=== PATIENT | female | born 1980 | race Caucasian/White ===

== ENCOUNTER 2016-05-22 00:48 | Inpatient (IN) | payer MEDICARE ==
[~2016-05-22] VITALS: Ht 152.4 cm; Wt 52.4 kg
[2016-05-22] MEDS ORDERED: PROMETHAZINE 25 MG/ML VIAL ONE (01:59)
[2016-05-22] MEDS ORDERED: SODIUM CHLORIDE 0.9% 1,000 ML ONE (02:23)
[2016-05-22] MEDS ORDERED: METOCLOPRAMIDE 10 MG/2 ML VIAL ONE (03:24)
[2016-05-22] MEDS ORDERED: DIPHENHYDRAMINE 50 MG/ML VIAL ONE (03:24)
[2016-05-22] MEDS ORDERED: LORAZEPAM 2 MG/ML VIAL IM PRN (05:25)
[2016-05-22] MEDS ORDERED: DIPHENHYDRAMINE 50 MG/ML VIAL IM PRN (05:25)
[2016-05-22] MEDS ORDERED: HALOPERIDOL 5 MG TAB PO PRN (05:25)
[2016-05-22] MEDS ORDERED: DIPHENHYDRAMINE 50 MG CAP PO PRN (05:25)
[2016-05-22] MEDS ORDERED: ALU/MAG/SIM 30 ML UDC PO PRN (05:25)
[2016-05-22] MEDS ORDERED: LORAZEPAM 2 MG TAB PO PRN (05:25)
[2016-05-22] MEDS ORDERED: HALOPERIDOL 5 MG/ML VIAL IM PRN (05:25)
[2016-05-22] MEDS ORDERED: TRAZODONE 50 MG TAB PO PRN (05:25)
[2016-05-22] MEDS ORDERED: MAG HYDROX 30 ML UDC PO PRN (05:25)
[2016-05-22 05:53] VITALS: BP_SYST 131; RESP 16; TEMP 98.8
[2016-05-22 05:57] VITALS: Ht 152.4 cm; Wt 52.4 kg
[2016-05-22] MEDS ORDERED: ACETAMIN/BUTALB/CAFF PO PRN (08:15)
[2016-05-22] MEDS ORDERED: Ibuprofen 800 MG TAB PO PRN (08:15)
[2016-05-22] MEDS ORDERED: hydrOXYzine 25 MG TAB PO PRN (08:15)
[2016-05-22] MEDS ORDERED: LEVEMIR INSULIN SUBQ SCH (08:15)
[2016-05-22] MEDS ORDERED: BUSPIRONE HCL 15 MG TAB PO PRN (08:15)
[2016-05-22] MEDS ORDERED: CALCIUM CARB/VIT D3 600 MG TAB PO SCH (09:00)
[2016-05-22] MEDS ORDERED: TOPIRAMATE 25 MG TAB PO SCH (09:00)
[2016-05-22] MEDS ORDERED: Rivaroxaban 15 MG TAB PO SCH (09:00)
[2016-05-22] MEDS: FLINTSTONES COMPLETE PO SCH (09:30)
[2016-05-22] MEDS: CALCIUM CARB/VIT D3 600 MG TAB PO SCH (09:30)
[2016-05-22] MEDS: VENLAFAXINE XR 150 MG CAP PO SCH (09:30)
[2016-05-22] MEDS: ROSUVASTATIN 20 MG TAB PO SCH (09:30)
[2016-05-22] MEDS: PROMETHAZINE 25 MG TAB PO PRN ×2 (09:31→15:20)
[2016-05-22] MEDS: LEVOTHYROXINE 0.2 MG TAB PO SCH (11:00)
[2016-05-22] MEDS: DIVALPROEX DR 250 MG TAB PO SCH ×3 (11:08→21:34)
[2016-05-22] MEDS: TOPIRAMATE 25 MG TAB PO SCH ×2 (11:08→21:34)
[2016-05-22] MEDS ORDERED: GLUCAGON 1 MG VIAL IM PRN (12:00)
[2016-05-22] MEDS ORDERED: DEXTROSE 50% SYRINGE 50 ML IV PRN (12:00)
[2016-05-22] MEDS ORDERED: MISSING DOSE XX ONE (15:00)
[2016-05-22 19:30] VITALS: BP_SYST 111; RESP 20; TEMP 97.8
[2016-05-22] MEDS: LEVEMIR INSULIN SUBQ SCH (20:53)
[2016-05-22] MEDS ORDERED: MIRTAZAPINE 15 MG TAB PO SCH (21:00)
[2016-05-23] MEDS: LEVOTHYROXINE 0.2 MG TAB PO SCH (07:21)
[2016-05-23 08:37] VITALS: BP_SYST 121; RESP 16; TEMP 98.5
[2016-05-23] MEDS: LEVEMIR INSULIN SUBQ SCH (08:45)
[2016-05-23] MEDS ORDERED: MISSING DOSE XX ONE (08:55)
[2016-05-23] MEDS: VENLAFAXINE XR 150 MG CAP PO SCH (09:39)
[2016-05-23] MEDS: DIVALPROEX DR 250 MG TAB PO SCH (09:39)
[2016-05-23] MEDS: CALCIUM CARB/VIT D3 600 MG TAB PO SCH (09:39)
[2016-05-23] MEDS: TOPIRAMATE 25 MG TAB PO SCH (09:39)
[2016-05-23] MEDS: ROSUVASTATIN 20 MG TAB PO SCH (09:39)
[2016-05-23] MEDS: FLINTSTONES COMPLETE PO SCH (09:39)
[2016-05-23 10:58] VITALS: BP_SYST 121; RESP 16; TEMP 98.5
== END 2016-05-23 13:00 | disposition home or self-care (01) | DRG 885 ==
LOC: ENRESERVDT → ENRESERVTM → EEVIPCON 00:48 → ER 00:48 → EMR 05:07 → PSY 05:31
PROVIDERS: ADMIT Psychiatry & Neurology Psychiatry; ATTEND Psychiatry & Neurology Psychiatry
DX: F33.2 Major depressive disorder, recurrent severe without psychotic features (principal); E11.9 Type 2 diabetes mellitus without complications; E05.00 Thyrotoxicosis with diffuse goiter without thyrotoxic crisis or storm; F43.10 Post-traumatic stress disorder, unspecified; F41.9 Anxiety disorder, unspecified; F60.3 Borderline personality disorder; E78.5 Hyperlipidemia, unspecified; G43.909 Migraine, unspecified, not intractable, without status migrainosus; Z86.73 Personal history of transient ischemic attack (TIA), and cerebral infarction without residual deficits; Z86.14 Personal history of Methicillin resistant Staphylococcus aureus infection; Z87.820 Personal history of traumatic brain injury; G40.909 Epilepsy, unspecified, not intractable, without status epilepticus
CPT/HCPCS: 36415; 70450; 71020; 80053; 80307; 80320; 80329; 81003; 82553; 82947; 84439; 84443; 84484; 84703; 85025; 85610; 85730; 90471; 93005; 96361; 96372; 96374; 96375